=== PATIENT | male | born 1985 | race Caucasian/White ===

== ENCOUNTER 2016-09-28 13:15 | Emergency (ER) | payer SELFPAY ==
[~2016-09-28] VITALS: Ht 182.9 cm; Wt 70.0 kg
[~2016-09-28 13:15] MED LIST: IBUP-232 PO; LORA-392 PO; LORT7.5T3 PO
[2016-09-28 13:19] VITALS: BP 155/88; PULSE 52; RESP 28; TEMP 97.8; O2SAT 100
[2016-09-28] MEDS ORDERED: PENI500T PO (14:04)
[2016-09-28] MEDS ORDERED: NAPR500T PO (14:04)
--- NOTE | 2016-09-28 14:04 | PD ---
HPI Chief Complaint: Oral / Dental Pain or Problem Time Seen by Provider: 13:48 Travel History International Travel<30 days: No Contact w/Intl Traveler<30days: No Traveled to known affect area: No History of Present Illness HPI This is a 31-year-old male who presents to the emergency department with 2 months of dental pain. He has a cracked tooth on his right upper mouth that is painful, sharp, constant, severe with no associated fevers or chills. He knows he needs to get the tooth out that he's been postponing it. Taking Motrin but hasn't been helping. PFSH Past Medical History Medical History: Denies Significant Hx Diminished Hearing: No Tetanus Vaccination: Unknown Past Surgical History Surgical History: No Previous Surgery Social History Alcohol Use: Yes (HEAVILY TONIGHT 04/17/08) Tobacco Use: Yes (02/18 PPD) Substance Use: Yes (marijuana) Allergies-Medications (Allergen,Severity, Reaction): Coded Allergies: No Known Allergies (Verified , 09/28/16) Reported Meds & Prescriptions Reported Meds & Active Scripts Active No Active Prescriptions or Reported Medications Review of Systems Except as stated in HPI: all other systems reviewed are Neg Physical Exam Narrative GENERAL:Well appearing, no acute distress SKIN: Focused skin assessment warm and dry. HEAD: Atraumatic. Normocephalic. EYES: Pupils equal and round. No injection or drainage. ENT: Moist mucous membranes. Old fractured right upper molar with some surrounding erythema focally tender. NECK: Trachea midline. No submandibular fullness or tenderness. CARDIOVASCULAR: Regular rate and rhythm. No murmur appreciated. RESPIRATORY: Clear to auscultation. Breath sounds equal bilaterally. GASTROINTESTINAL: Abdomen soft, non-tender, nondistended. MUSCULOSKELETAL: No obvious deformities. NEUROLOGICAL: Awake and alert. No obvious cranial nerve deficits. Moving all extremities. PSYCHIATRIC: Appropriate mood and affect; insight and judgment normal. Data Data Last Documented VS Vital Signs Date Time Temp Pulse Resp B/P Pulse Ox O2 Delivery O2 Flow Rate FiO2 09/28/16 13:32 18 09/28/16 13:19 97.8 52 155/88 100 Room Air MDM Medical Decision Making Medical Screen Exam Complete: Yes Emergency Medical Condition: Yes Differential Diagnosis Dental abscess, dental fracture, dental pain Narrative Course This is a 31-year-old male who presents the emergency department with dental pain in the setting of an old dental fracture. He has no obvious swelling and no fevers or chills. Think is appropriate for outpatient management. He'll be prescribed antibiotics and pain control. Diagnosis Primary Impression: Pain, dental Additional Instructions: If you develop increasing swelling, fevers or chills return to the emergency room. Follow-up with a dentist as soon as possible. Med/Other Pt SpecificInfo: Prescription(s) given Scripts Penicillin V Potassium 500 Mg Xax210 Mg PO Q6H 7 Days Ref 0 Prov:Tawana Black MD 09/28/16 Naproxen 500 Mg Ckh193 Mg PO BID PRN (PAIN SCALE 4 TO 10) #20 TAB Prov:Tawnaa Black MD 09/28/16 Disposition: 01 DISCHARGE HOME Condition: Stable Tawana Black MD Sep 28, 2016 14:04
[2016-09-28] MEDS ORDERED: KETOROLAC TROMETHAMINE 60 MG/2 ML (IM) VIAL IM ONE (14:15)
== END 2016-09-28 14:42 | disposition home or self-care (01) ==
LOC: NEPD 13:15
DX: K08.89 Other specified disorders of teeth and supporting structures (principal); F17.200 Nicotine dependence, unspecified, uncomplicated
CPT/HCPCS: 96372; 99284; J1885

== ENCOUNTER 2016-11-17 06:05 | Emergency (ER) | payer SELFPAY ==
[~2016-11-17] VITALS: Ht 182.9 cm; Wt 70.0 kg
[~2016-11-17 06:05] MED LIST changes: -IBUP-232 PO; -LORA-392 PO; -LORT7.5T3 PO; +NAPR500T PO; +PENI500T PO
[2016-11-17 06:08] VITALS: BP 129/85; PULSE 106; RESP 16; TEMP 97.8; O2SAT 94
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
== END 2016-11-17 07:06 | disposition home or self-care (01) ==
LOC: NEPD 06:05
DX: S01.81XA Laceration without foreign body of other part of head, initial encounter (principal); S01.112A Laceration without foreign body of left eyelid and periocular area, initial encounter; X58.XXXA Exposure to other specified factors, initial encounter
CPT/HCPCS: 12014

== ENCOUNTER 2016-11-29 14:30 | Emergency (ER) | payer SELFPAY ==
[~2016-11-29] VITALS: Ht 182.9 cm; Wt 70.0 kg
[2016-11-29 14:33] VITALS: BP 117/75; PULSE 63; RESP 18; TEMP 97.8; O2SAT 95
--- NOTE | 2016-11-29 16:13 | PD ---
HPI Chief Complaint: Wound/Suture/Staple Re-Check Time Seen by Provider: 16:12 Travel History International Travel<30 days: No Contact w/Intl Traveler<30days: No Traveled to known affect area: No History of Present Illness HPI 31-year-old male presents emergency department requesting suture removal from his left forehead and left eyebrow. Sutures been in place for 10 days. Denies fever, vomiting. Denies drainage, erythema, edema to the wound sites. Sutures are mild in severity. No known aggravating or relieving factors. Has no other medical complaints. Allergies watermelon. No other modifying factors or associated signs and symptoms. PFSH Past Medical History Diminished Hearing: No Social History Alcohol Use: Yes (HEAVILY TONIGHT ) Tobacco Use: Yes (1/2 PPD) Substance Use: Yes (marijuana) Allergies-Medications (Allergen,Severity, Reaction): Coded Allergies: watermelon (Verified Allergy, Severe, 11/17/16) Reported Meds & Prescriptions Reported Meds & Active Scripts Active Review of Systems Except as stated in HPI: all other systems reviewed are Neg Physical Exam Narrative GENERAL: Well-nourished, well-developed male patient, in no acute distress; afebrile, nontoxic-appearing SKIN: Warm and dry. Left forehead and left eyebrow with lacerations that are well approximated with sutures intact; both without erythema, edema, drainage. No signs of infection. HEAD: Atraumatic. Normocephalic. EYES: Pupils equal and round. No scleral icterus. No injection or drainage. ENT: Mucosa pink and moist. Airway patent. NECK: Trachea midline. CARDIOVASCULAR: Regular rate. RESPIRATORY: No accessory muscle use. GASTROINTESTINAL: Flat. MUSCULOSKELETAL: No obvious deformities. No clubbing. No cyanosis. No edema. NEUROLOGICAL: Awake and alert. Oriented 3. No obvious cranial nerve deficits. Motor grossly within normal limits. Normal speech. PSYCHIATRIC: Appropriate mood and affect; insight and judgment normal. Data Data Last Documented VS Vital Signs Date Time Temp Pulse Resp B/P (MAP) Pulse Ox O2 Delivery O2 Flow Rate FiO2 11/29/16 16:15 11/29/16 14:33 97.8 63 18 95 Room Air Orders Orders Ed Discharge Order (11/29/16 16:13) MDM Medical Decision Making Medical Screen Exam Complete: Yes Emergency Medical Condition: Yes Medical Record Reviewed: Yes Differential Diagnosis Encounter for suture removal, medical clearance, wound recheck Narrative Course 31-year-old male presents for removal of sutures from left forehead and left eyebrow. Wounds are well approximated with sutures intact. No signs of infection. Sutures removed. Patient tolerated well. Instructed patient to follow up with primary care provider. Patient verbalizes understanding and agreement with treatment plan. Patient is medically cleared and stable for discharge. Discussed reasons to return to the emergency department. Patient agrees with treatment plan. The patients vital signs are stable and the patient is stable for outpatient follow-up and treatment. Patient discharged home, stable and in no acute distress. Diagnosis Primary Impression: Encounter for removal of sutures Referrals: [facility] Primary Care Physician Patient Instructions: General Instructions, Stitches Removal (ED) Additional Instructions: Vaseline or Aquaphor to affected areas for continued wound care Ibuprofen or Tylenol as directed and as needed for pain Follow-up with primary care provider Return to the emergency department immediately for worsening of symptoms Med/Other Pt SpecificInfo: No Change to Meds, No Meds Exist/No RX given Disposition: 01 DISCHARGE HOME Condition: Stable Nicole Hernandez Nov 29, 2016 16:13
== END 2016-11-29 16:23 | disposition home or self-care (01) ==
LOC: NEPK 14:30
DX: Z48.02 Encounter for removal of sutures (principal); F17.200 Nicotine dependence, unspecified, uncomplicated
CPT/HCPCS: 99281